=== PATIENT | female | born 1935 | race Caucasian/White ===

== ENCOUNTER → 2016-07-22 | Outpatient (CLI) | payer MEDICARE, BC ==
--- NOTE | 2016-07-22 16:36 | US ---
EXAMINATION TYPE: US carotid duplex BILAT DATE OF EXAM: 07/22/2016 2:00 PM COMPARISON: NONE CLINICAL HISTORY: 81-year-old female carotid bruit R09.89,. TECHNIQUE: Duplex carotid ultrasound. Indirect Doppler criteria was utilized. FINDINGS: Minimal atherosclerotic changes present at the bifurcations. EXAM MEASUREMENTS: RIGHT: Peak Systolic Velocity (PSV) cm/sec ----- Right CCA: 95.3 ----- Right ICA: 117.9 ----- Right ECA: 146.5 ICA/CCA ratio: 1.2 RIGHT: End Diastole cm/sec ----- Right CCA: 28.5 ----- Right ICA: 25.9 ----- Right ECA: 44.2 LEFT: Peak Systolic Velocity (PSV) cm/sec ----- Left CCA: 70.2 ----- Left ICA: 98.5 ----- Left ECA: 76.8 ICA/CCA ratio: 1.4 LEFT: End Diastole cm/sec ----- Left CCA: 13.1 ----- Left ICA: 24.8 ----- Left ECA: 6.7 VERTEBRALS (direction of flow): Right Vertebral: Antegrade Left Vertebral: Antegrade IMPRESSION: No hemodynamically significant stenosis appreciated in either internal carotid artery. Criteria for Assigning % of Stenosis / Diameter reduction (Estimation based on the indirect measurements of the internal carotid artery velocities (ICA PSV). 1. Normal (no stenosis)=ICA PSV < 125 cm/s: ratio < 2.0: ICA EDV<40 cm/s. 2. Less than 50% stenosis=ICA PSV < 125 cm/s: ratio < 2.0: ICA EDV<40 cm/s. 3. 50 to 69% stenosis=ICA PSV of 125 to 230 cm/s: ration 2.0 ? 4.0: ICA EDV 40-100 cm/s. 4. Greater than 70% stenosis to near occlusion= ICA PSV > 230 cm/s: ratio > 4.0: ICA EDV > 100 cm/s. 5. Near occlusion= ICA PSV velocities may be low or undetectable: variable ratio and ICA EDV. 6. Total occlusion=unable to detect flow.
--- NOTE | 2016-07-22 16:56 | BD ---
EXAMINATION TYPE: MG DEXA axial skeleton. DATE OF EXAM: 07/22/2016 1:25 PM COMPARISON: NONE CLINICAL HISTORY: 81-year-old female POST MENOPAUSAL Height: 5'1 Weight: 142 FRAX RISK QUESTIONS: Alcohol (3 or more units per day): no Family History (Parent hip fracture): no Glucocorticoids (More than 3mos): no (Ex: prednisone, prednisolone, methylprednisolone, dexamethasone, and hydrocortisone). History of Fracture in Adulthood: yes Secondary Osteoporosis: 1. Type 1 Diabetes: no 2. Hyperthyroidism: no 3. Menopause before 45: no 4. Malnutrition: no 5. Chronic liver disease: no Rheumatoid Arthritis: no Current Tobacco Use: no RISK FACTORS HISTORY OF: Other Fractures since Age 51: When: age 63 Postmenopausal woman: Poor Health: MEDICATIONS: Thyroid Medications: Which medication: Levothyroxine How Lon years Additional Medications: blood pressure, Xanax Additional History: EXAM MEASUREMENTS: Bone mineral densitometry was performed using the [employer] System. Bone mineral density as measured about the Lumbar spine is: ----- L1-L4(G/cm2): 1.129 T Score Values are as follows: ----- L2: -1.7 ----- L3: -0.5 ----- L4: 0.2 ----- L1-L4:-0.6 Bone mineral density about the R hip (g/cm2): 0.849 Bone mineral density about the L hip (g/cm2): 0.854 T Score values are as follows: -----R Neck: -1.4 -----L Neck: -1.3 -----R Intertrochanter: -1.5 -----L Intertrochanter: -1.7 IMPRESSION: Osteopenia as indicated by T score values in the lumbar spine and both hips. There is slightly increased risk of fracture and the patient may be considered for treatment. Re-Screen 2-5 years. NOTE: T-SCORE=SD OF THE YOUNG ADULT MEAN.
== END | disposition home or self-care (01) ==
LOC: RADUSWWP 13:06
PROVIDERS: ATTEND Family Medicine
DX: M85.88 Other specified disorders of bone density and structure, other site (principal); R09.89 Other specified symptoms and signs involving the circulatory and respiratory systems; Z78.0 Asymptomatic menopausal state
CPT/HCPCS: 77080; 93880

== ENCOUNTER → 2017-04-03 | Outpatient (CLI) | payer MEDICARE, BC ==
--- NOTE | 2017-04-04 22:53 | US ---
EXAMINATION TYPE: US thyroid st tissue head/neck DATE OF EXAM: 04/03/2017 COMPARISON: NONE CLINICAL HISTORY: E03.9 Hypothyroidism. Hypothyroid, pt had right thyroid removed many years ago, is currently on thyroid meds GLAND SIZE: Right Lobe: Surgically absent Left Lobe: 3.6 x 1.0 x 1.0 cm Overall Parenchyma: heterogeneous Isthmus Thickness: 0.4 cm Bilateral neck scanned, no evidence of lymphadenopathy. Right thyroid bed appeared wnl, left thyroid heterogeneous with no definite nodules seen. IMPRESSION: 1. Surgically absent right lobe thyroid. No suspicious anomaly is within the left lobe thyroid.
== END ==
LOC: RADUSWWP 16:23
PROVIDERS: ATTEND Family Medicine
DX: E03.9 Hypothyroidism, unspecified (principal)
CPT/HCPCS: 76536

== ENCOUNTER → 2017-12-17 | Outpatient (CLI) | payer MEDICARE, BC ==
[2017-12-17 07:10] LABS: Basophils # (A) 0.1 k/uL (0-0.2); Basophils % (A) 1 %; Eosinophils # (A) 0.4 k/uL (0-0.7); Eosinophils % (A) 4 %; HCT 37.9 % (34.0-46.0); Lymphocytes # (A) 2.6 k/uL (1.0-4.8); Lymphocytes % (A) 27 %; MCH 28.5 pg (25.0-35.0); MCHC 31.8 g/dL (31.0-37.0); MCV 89.5 fL (80.0-100.0); Monocytes # (A) 0.7 k/uL (0-1.0); Monocytes % (A) 7 %; Neutrophils # (A) 5.7 k/uL (1.3-7.7); Neutrophils % (A) 59 %; Platelet Count 314 k/uL (150-450); RBC 4.23 m/uL (3.80-5.40); RDW 12.3 % (11.5-15.5); WBC 9.6 k/uL (3.8-10.6)
[2017-12-17 07:46] LABS: Albumin 4.1 g/dL (3.5-5.0); Calcium 9.7 mg/dL (8.4-10.2); Magnesium 1.7 mg/dL (1.6-2.3); Phosphorus 3.6 mg/dL (2.5-4.5); Potassium 4.2 mmol/L (3.5-5.1); Total Bilirubin 0.4 mg/dL (0.2-1.3); Uric Acid 5.8 mg/dL (3.7-7.4)
[2017-12-17 07:57] LABS: T4, Free (Free Thyroxine) 1.34 ng/dL (0.78-2.19)
[2017-12-17 14:37] LABS: Hemoglobin A1C 5.7 % (4.0-6.0)
== END | disposition home or self-care (01) ==
LOC: LABWHC1 06:35
PROVIDERS: ATTEND Family Medicine
DX: N18.3 Chronic kidney disease, stage 3 (moderate) (principal); E78.5 Hyperlipidemia, unspecified; E03.9 Hypothyroidism, unspecified; R73.01 Impaired fasting glucose
CPT/HCPCS: 36415; 80053; 80061; 82043; 82306; 82570; 83036; 83735; 84100; 84439; 84443; 84550; 85025

== ENCOUNTER → 2018-04-20 | Outpatient (CLI) | payer MEDICARE, BC ==
[2018-04-20 16:24] LABS: Basophils # (A) 0.1 k/uL (0-0.2); Basophils % (A) 1 %; Eosinophils # (A) 0.4 k/uL (0-0.7); Eosinophils % (A) 5 %; HCT 40.3 % (34.0-46.0); HGB 13.3 gm/dL (11.4-16.0); Lymphocytes % (A) 36 %; MCH 30.2 pg (25.0-35.0); MCV 91.5 fL (80.0-100.0); Monocytes # (A) 0.5 k/uL (0-1.0); Monocytes % (A) 6 %; Neutrophils # (A) 4.1 k/uL (1.3-7.7); Neutrophils % (A) 49 %; Platelet Count 274 k/uL (150-450); RDW 12.6 % (11.5-15.5); WBC 8.4 k/uL (3.8-10.6)
[2018-04-21 05:18] LABS: Anion Gap 7.5 mmol/L (4.00-12.00); Calcium 9.9 mg/dL (8.7-10.3); Carbon Dioxide 27.5 mmol/L (21.6-31.8); Magnesium 1.8 mg/dL (1.5-2.4); Phosphorus 4.1 mg/dL (2.4-5.1); Potassium 4.3 mmol/L (3.5-5.5); Uric Acid 6.4 mg/dL (2.9-7.7)
== END ==
LOC: LABWHC1 15:54
PROVIDERS: ATTEND Family Medicine
DX: N18.3 Chronic kidney disease, stage 3 (moderate) (principal)
CPT/HCPCS: 36415; 80048; 82043; 82570; 83735; 83970; 84100; 84550; 85025

== ENCOUNTER → 2018-04-30 | Outpatient (CLI) | payer MEDICARE, BC ==
--- NOTE | 2018-04-30 18:05 | ECHOF ---
Referral Reason:I10 hypertension; I27.0 Primary pulmonary HTN MEASUREMENTS -------- HEIGHT: 154.9 cm WEIGHT: 63.5 kg BP: 183/77 RVIDd: 2.6 cm (< 3.3) IVSd: 1.0 cm (0.6 - 1.1) LVIDd: 4.6 cm (3.9 - 5.3) LVPWd: 1.0 cm (0.6 - 1.1) IVSs: 1.3 cm LVIDs: 3.2 cm LVPWs: 1.3 cm LA Diam: 3.4 cm (2.7 - 3.8) LAESV Index (A-L): 24.89 ml/m Ao Diam: 2.8 cm (2.0 - 3.7) AV Cusp: 2.0 cm (1.5 - 2.6) MV EXCURSION: 13.362 mm (> 18.000) MV EF SLOPE: 55 mm/s (70 - 150) EPSS: 0.3 cm MV E Miguel Ángel: 1.06 m/s MV DecT: 235 ms MV A Miguel Ángel: 1.18 m/s MV E/A Ratio: 0.90 AR PHT: 767 ms RAP: 5.00 mmHg RVSP: 40.56 mmHg FINDINGS -------- Sinus rhythm. This was a technically adequate study. The left ventricular size is normal. Left ventricular wall thickness is normal. Overall left vent ricular systolic function is normal with, an EF between 55 - 60 %. The right ventricle is normal in size. Normal LA size by volume 22+/-6 ml/m2. The right atrial size is normal. There is mild aortic valve sclerosis. There is mild aortic regurgitation. The mitral valve leaflets are mildly thickened. Mild mitral regurgitation is present. Mild tricuspid regurgitation present. There is mild pulmonary hypertension. The right ventricular systolic pressure, as measured by Doppler, is 40.56mmHg. Trace/mild (physiologic) pulmonic regurgitation. The aortic root size is normal. Normal inferior vena cava with normal inspiratory collapse consistent with estimated right atrial pre ssure of 5 mmHg. There is no pericardial effusion. CONCLUSIONS -------- 1. Sinus rhythm. 2. This was a technically adequate study. 3. The left ventricular size is normal. 4. Left ventricular wall thickness is normal. 5. Overall left ventricular systolic function is normal with, an EF between 55 - 60 %. 6. Normal LA size by volume 22+/-6 ml/m2. 7. The right atrial size is normal. 8. There is mild aortic valve sclerosis. 9. There is mild aortic regurgitation. 10. The mitral valve leaflets are mildly thickened. 11. Mild mitral regurgitation is present. 12. Mild tricuspid regurgitation present. 13. There is mild pulmonary hypertension. 14. Trace/mild (physiologic) pulmonic regurgitation. 15. The aortic root size is normal. 16. Normal inferior vena cava with normal inspiratory collapse consistent with estimated right atrial pressure of 5 mmHg. 17. There is no pericardial effusion. PERIPHERAL VASCULAR TECH: Vane Grider RDCS
== END ==
LOC: RADECHMAIN 15:42
PROVIDERS: ATTEND Family Medicine
DX: I08.3 Combined rheumatic disorders of mitral, aortic and tricuspid valves (principal)
CPT/HCPCS: 93306

== ENCOUNTER → 2019-04-16 | Outpatient (CLI) | payer MEDICARE, BC ==
--- NOTE | 2019-04-16 18:26 | BD ---
EXAMINATION TYPE: Axial Bone Density DATE OF EXAM: 04/16/2019 COMPARISON: 07.22.2016 CLINICAL HISTORY: 84 YR OLD FEMALE ...ICD-10 CODE: M85.80 DISORDER OF BONE Height: 61.2 Weight: 144 FRAX RISK QUESTIONS: NOTHING ADDITIONAL TO NOTE RISK FACTORS HISTORY OF: Family History of Osteoporosis: YES, HER SISTER Postmenopausal woman: YES IN HER 50s Take estrogen and/or progesterone medications: YES FOR ABOUT 2-3 YRS IN THE PAST NONE NOW Lost more than 2 inches in height since high school: YES Poor Health: ELDERLY Hyperparathyroidism: YES, THYROID REMOVED Adrenal Insufficiency: NO MEDICATIONS: Thyroid Medications: YES, SYNTHROID FOR ABOUT 10 YRS Additional Medications: BP MEDS, REFLUX MEDS, VIT D Additional History: HYPERTENSION EXAM MEASUREMENTS: Bone mineral densitometry was performed using the [employer] System. Bone mineral density as measured about the Lumbar spine is: ----- L1-L4(G/cm2): 1.192 T Score Values are as follows: ----- L1: -1.1 ----- L2: -1.1 ----- L3: 0.5 ----- L4: 1.6 ----- L1-L4: 0.1 Bone mineral density has: Increased 10.0% since study of: 07.22.2016 Bone mineral density about the R hip (g/cm2): 0.867 Bone mineral density about the L hip (g/cm2): 0.888 T Score values are as follows: -----R Neck: -1.0 -----L Neck: -0.9 -----R Total: -1.1 -----L Total: -0.9 Bone mineral density has: Increased 1.0% since study of: 07.22.2016 FRAX%s: THERE IS A 11.6% CHANCE FOR A MAJOR OSTEOPOROTIC FX AND A 2.6% FOR HIP.....PROBABILITY FOR FX IN 10 YRS TIME IMPRESSION: Osteopenia (T Score between -2.5 and -1). There is slightly increased risk of fracture and the patient may be considered for treatment. Re-Screen 2-5 years. NOTE: T-SCORE=SD OF THE YOUNG ADULT MEAN.
== END | disposition home or self-care (01) ==
LOC: RADBDWWP 06:59
PROVIDERS: ATTEND Family Medicine
DX: M85.80 Other specified disorders of bone density and structure, unspecified site (principal); M19.90 Unspecified osteoarthritis, unspecified site
CPT/HCPCS: 77080

== ENCOUNTER → 2019-10-08 | Outpatient (CLI) | payer MEDICARE, BC ==
--- NOTE | 2019-10-12 08:24 | MM ---
Reason for exam: screening (asymptomatic). Last mammogram was performed 2 years and 3 months ago. Physical Findings: A clinical breast exam by your physician is recommended on an annual basis and results should be correlated with mammographic findings. MG 3D Screening Mammo W/Cad Bilateral CC and MLO view(s) were taken. Prior study comparison: July 22, 2017, mammogram, performed at [facility]. April 25, 2016, mammogram, performed at [facility]. There are scattered fibroglandular densities. Stable benign calcifications. There is no discrete abnormality. No significant changes when compared with prior studies. ASSESSMENT: Benign, BI-RAD 2 RECOMMENDATION: Routine screening mammogram of both breasts in 1 year.
== END | disposition home or self-care (01) ==
LOC: RADMAMWWP 10:26
PROVIDERS: ATTEND Family Medicine
DX: Z12.31 Encounter for screening mammogram for malignant neoplasm of breast (principal)
CPT/HCPCS: 77063; 77067

== ENCOUNTER 2020-07-14 13:51 | Emergency (ER) | payer MEDICARE, BC ==
[2020-07-14 14:45] VITALS: BP 184/73; PULSE 69; RESP 18; TEMP 97.9
--- NOTE | 2020-07-14 16:06 | CT ---
EXAMINATION TYPE: CT facial bones wo con DATE OF EXAM: 07/14/2020 COMPARISON: 03/31/2010 CT orbits HISTORY: fall, facial trauma CT DLP: Included in Brain/C-spine of 973.3 mGycm CONTRAST: 0 mL of Isovue 300 The paranasal sinuses are examined in the axial plane at 2 mm thick sections. Reconstructed images i n the coronal plane were obtained. There is dental amalgam scatter artifact. No acute fractures are evident. Nasal bones are intact. Max illa and mandible are intact. Temporomandibular junctions are intact. There is narrowing and flatteni ng of the condylar heads compatible with advancing osteoarthritic degenerative changes of the temporo mandibular junctions.. Maxillary spine is normal. Zygomatic arches are intact. Greater wings of sphen oid are normal. The maxillary sinuses are clear. The ethmoid air cells are clear. The sphenoid sinuses are clear. The frontal sinuses are clear. The septum is evaluated. There is septal deviation to the right. The ostiomeatal units are patent. IMPRESSIONS: 1. No acute fractures evident. 2. 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
--- NOTE | 2020-07-14 16:11 | CT ---
EXAMINATION TYPE: CT brain mady wo con DATE OF EXAM: 07/14/2020 COMPARISON: 03/31/2010 HISTORY: A 5-year-old female Fall, facial trauma CT DLP: 973.3 mGycm Automated exposure control for dose reduction was used. Technique: Examination of the head was done in axial plane without intravenous contrast. Coronal and sagittal reconstructions performed. CT of the cervical spine was obtained in axial plane without intravenous injection of contrast mater ial. Coronal and sagittal reformatted images were obtained from the axial views for evaluation of f ractures, spinal alignment and canal. FINDINGS: Head: There is no evidence of acute intracranial hemorrhage, acute ischemic changes, mass, mass-effect, or extra-axial fluid collection. There is no effacement of cerebral sulci or basal subarachnoid cister ns. There is no hydrocephalus. There is no midline shift. Tubbs-white matter distinction is preserv ed. Mild generalized supratentorial volume loss. Partially empty sella. Mild patchy periventricular white matter hypodensities. Tiny old lacunar infarct left basal ganglia. No calvarial fracture. Mastoid air cells are well pneumatized. The facial bones reported separately. Cervical spine: No craniocervical junction abnormality, predental space widening, or prevertebral soft tissue swellin g. Mild degenerative change at the C1 dens articulation. Mild degenerative disc disease with some posterior disc bulging in the cervical spine. There is a lef t paracentral disc protrusion at C5-C6 that does not seem to cause any significant spinal canal steno sis. Scattered mild facet arthropathy. No acute fracture of the cervical spine. Alignment is maintained. No significant neuroforaminal stenosis seen. Right lobe of the thyroid gland appears absent, possibly surgically absent. Mild emphysematous change in the visualized upper lungs. Sagittal and coronal reformatted images confirm above findings. COMBINED IMPRESSION: 1. Mild atrophy and mild burden of chronic small vessel ischemic disease. No acute intracranial abnor mality seen. 2. No acute fracture or malalignment of the cervical spine. Mild spondylotic change. A left paracentr al disc herniation at C5-C6 does not appear to cause any significant spinal canal stenosis. 3. Facial bones reported separately.
[2020-07-14] MEDS ORDERED: DIPH,PERTUS(ACELL)TETVAC-LF 0.5 ML VIAL IM ONE (19:35)
--- NOTE | 2020-07-14 19:43 | ED ---
Fall HPI - General Chief Complaint: Fall Stated Complaint: Fall Time Seen by Provider: 07/14/20 19:00 Source: patient, family Mode of arrival: ambulatory - History of Present Illness Initial Comments: This is a 85-year-old female who fell earlier today after tripping she hit her face on the ground she denied any loss of consciousness any revision she has pain to her face and it hadn't nasal bleeding. No overt neck pain. No loss of function to her upper or lower extremities. She has sustained abrasions to her right orbit and left side of herface. Some minor abrasion to her both hands no other complaints to problems such as loss of function to her upper or lower extremities. She's not sure her last tetanus shot was. The nasal bleeding has since stopped up. MD Complaint: fall - Related Data Home Medications Medication Instructions Recorded Confirmed Aspirin EC [Ecotrin] 81 mg PO DAILY 09/29/15 09/30/15 Calcium Carbonate [Calcium] 600 mg PO DAILY 09/29/15 09/30/15 Glucosamine/Chondr Bermudez A Sod [Osteo 1 tab PO DAILY 09/29/15 09/30/15 Bi-Flex Caplet] Levothyroxine Sodium [Synthroid] 100 mcg PO DAILY 09/29/15 09/30/15 Metoprolol Tartrate [Lopressor] 50 mg PO DAILY 09/29/15 09/30/15 hydroCHLOROthiazide 25 mg PO DAILY 09/29/15 09/30/15 lisinopriL [Zestril] 20 mg PO DAILY 09/29/15 09/30/15 ALPRAZolam 0.5 mg PO HS 09/30/15 09/30/15 Previous Rx's Medication Instructions Recorded Sulfacetamide 10% Ophth Soln 2 drops RIGHT EYE Q8H 10 Days #5 ml 07/14/20 [Bleph-10] Allergies Allergy/AdvReac Type Severity Reaction Status Date / Time No Known Allergies Allergy Verified 07/14/20 14:40 Review of Systems ROS Statement: Those systems with pertinent positive or pertinent negative responses have been documented in the HPI. ROS Other: All systems not noted in ROS Statement are negative. Past Medical History Past Medical History: Hypertension, Thyroid Disorder Additional Past Medical History / Comment(s): DIVERTICULITIS, FIBROMYLAGIA History of Any Multi-Drug Resistant Organisms: None Reported Past Surgical History: Section Additional Past Surgical History / Comment(s): Thyroid surgery, SCOPES BILATERAL KNEES, COCCYX BONE REMOVED Past Anesthesia/Blood Transfusion Reactions: No Reported Reaction Past Psychological History: No Psychological Hx Reported Smoking Status: Never smoker Past Alcohol Use History: None Reported Past Drug Use History: None Reported - Past Family History Sister(s) Family Medical History: Diabetes Mellitus Additional Family Medical History / Comment(s): CABG Mother Family Medical History: Cancer Additional Family Medical History / Comment(s): COLON CA General Exam - General Exam Comments Initial Comments: This is a well-developed well-nourished awake alert oriented 4 female Mary Coma Scale 15 Limitations: no limitations General appearance: alert, in no apparent distress Head exam: Present: other (Abrasions to the right orbit and left nasal region some ecchymosis to the inferior right orbit.) Eye exam: Present: PERRL, EOMI, other (The lower lid on the right side demonstrate evidence of beginnings of a stye). Absent: conjunctival injection Neck exam: Present: normal inspection. Absent: tenderness, meningismus, lymphadenopathy Respiratory exam: Present: normal lung sounds bilaterally. Absent: respiratory distress, wheezes, rales, rhonchi, stridor Cardiovascular Exam: Present: regular rate Extremities exam: Present: full ROM, normal capillary refill, other (Agency over the left dorsal thumb MCP and also over the fifth finger on the right hand dorsal aspect no acute bleeding no repair indicated no step-off or crepitation). Absent: tenderness Back exam: Present: full ROM Neurological exam: Present: alert, oriented X3, CN II-XII intact Psychiatric exam: Present: normal affect, normal mood Skin exam: Present: warm, dry, normal color. Absent: rash Course Vital Signs 07/14/20 14:40 Temperature 97.9 F Pulse Rate 69 Respiratory 18 Rate Blood Pressure 184/73 O2 Sat by Pulse 99 Oximetry Medical Decision Making - Medical Decision Making I did discuss findings with patient and her daughter was present patient be discharged she will be placed on eye drops for her anxiety also local wound care - Radiology Data Radiology results: report reviewed (Imaging reviewed as well as reports no evidence of any fracture subluxations CT brain and C-spine show no acute findings evidence of degenerative joint disease please see complete report), i mage reviewed Disposition Clinical Impression: Fall, Facial abrasion, Stye, Epistaxis due to trauma Disposition: HOME SELF-CARE Condition: Good Instructions (If sedation given, give patient instructions): Fall Prevention for Older Adults (ED), Abrasion (ED), Nasal Contusion (ED), Contusion in Adults (ED), Nosebleed (ED) Prescriptions: Sulfacetamide 10% Ophth Soln [Bleph-10] 2 drops RIGHT EYE Q8H 10 Days #5 ml Is patient prescribed a controlled substance at d/c from ED?: No Referrals: Luis Colón [Primary Care Provider] - 1-2 days
== END 2020-07-14 19:54 | disposition home or self-care (01) ==
LOC: EC 13:51
DX: S00.81XA Abrasion of other part of head, initial encounter (principal); I10 Essential (primary) hypertension; Z79.82 Long term (current) use of aspirin; W19.XXXA Unspecified fall, initial encounter; Z23 Encounter for immunization
CPT/HCPCS: 70450; 70486; 72125; 90471; 90715; 99284

== ENCOUNTER → 2021-07-27 | Outpatient (CLI) | payer MEDICARE, BC ==
--- NOTE | 2021-07-27 15:26 | US ---
EXAMINATION TYPE: US carotid duplex BILAT DATE OF EXAM: 07/27/2021 COMPARISON: US 2017 CLINICAL HISTORY: R42. Prior smoker. Hx hypertension, hyperlipidemia. Lightheadedness per order. EXAM MEASUREMENTS: RIGHT: Peak Systolic Velocity (PSV) cm/sec ----- Right CCA: 99.4 ----- Right ICA: 135 ----- Right ECA: 141 ICA/CCA ratio: 1.36 RIGHT: End Diastole cm/sec ----- Right CCA: 26.1 ----- Right ICA: 28.7 ----- Right ECA: 39.2 LEFT: Peak Systolic Velocity (PSV) cm/sec ----- Left CCA: 81.2 ----- Left ICA: 114 ----- Left ECA: 96.3 ICA/CCA ratio: 1.40 LEFT: End Diastole cm/sec ----- Left CCA: 12.6 ----- Left ICA: 22.4 ----- Left ECA: 8.1 VERTEBRALS (direction of flow): Right Vertebral: Antegrade Left Vertebral: Antegrade Rhythm: Normal Intimal thickening seen bilaterally. Mild Plaque seen within bilateral bulbs. Elevated velocity noted within the distal right ICA and right ECA. IMPRESSION: No hemodynamically significant stenosis in either internal carotid artery . Criteria for Assigning % of Stenosis / Diameter reduction (Estimation based on the indirect measurements of the internal carotid artery velocities (ICA PSV). 1. Normal (no stenosis)=ICA PSV < 125 cm/s: ratio < 2.0: ICA EDV<40 cm/s. 2. Less than 50% stenosis=ICA PSV < 125 cm/s: ratio < 2.0: ICA EDV<40 cm/s. 3. 50 to 69% stenosis=ICA PSV of 125 to 230 cm/s: ration 2.0 ? 4.0: ICA EDV 40-100 cm/s. 4. Greater than 70% stenosis to near occlusion= ICA PSV > 230 cm/s: ratio > 4.0: ICA EDV > 100 cm/s. 5. Near occlusion= ICA PSV velocities may be low or undetectable: variable ratio and ICA EDV. 6. Total occlusion=unable to detect flow.
== END | disposition home or self-care (01) ==
LOC: RADUSWWP 14:30
PROVIDERS: ATTEND Family Medicine
DX: R42 Dizziness and giddiness (principal); Z87.891 Personal history of nicotine dependence
CPT/HCPCS: 93880

== ENCOUNTER → 2021-09-24 | Outpatient (CLI) | payer MEDICARE, BC ==
--- NOTE | 2021-09-24 12:38 | US ---
EXAMINATION TYPE: US venous doppler duplex LE LT DATE OF EXAM: 09/24/2021 12:17 PM COMPARISON: NONE CLINICAL HISTORY: I82.40 M79.89. Pain and swelling SIDE PERFORMED: Left TECHNIQUE: The lower extremity deep venous system is examined utilizing real time linear array sonog yan with graded compression, doppler sonography and color-flow sonography. VESSELS IMAGED: Common Femoral Vein Deep Femoral Vein Greater Saphenous Vein * Femoral Vein Popliteal Vein Small Saphenous Vein * Proximal Calf Veins (* superficial vessels) Left Leg: Positive for DVT There is thrombus seen with partial compression in the prox and mid FV. The distal FV and pop vein sh ow no flow and distended vessel. IMPRESSION: Findings compatible with DVT.
== END | disposition home or self-care (01) ==
LOC: RADUSWWP 11:54
PROVIDERS: ATTEND Family Medicine
DX: I82.401 Acute embolism and thrombosis of unspecified deep veins of right lower extremity (principal); M79.89 Other specified soft tissue disorders

== ENCOUNTER → 2024-02-11 | Outpatient (CLI) | payer MEDICARE, BC ==
--- NOTE | 2024-02-11 14:19 | BD ---
EXAMINATION TYPE: Axial Bone Density DATE OF EXAM: 02/11/2024 CLINICAL HISTORY: 88 years old Female. ICD-10 CODE: M85.80 OT DISRD OF BONE DENSITY AND STRUCTURE, UN , Z78.0 Height: 60.2 Weight: 136 FRAX RISK QUESTIONS: Family History (Parent hip fracture): yes History of Fracture in Adulthood: yes, humerus Secondary Osteoporosis: yes 1. Type 1 Diabetes: 2. Hyperthyroidism: yes, thyroid removal 3. Menopause before 45: no, 50s RISK FACTORS HISTORY OF: height loss, thyroid removal, hypertension, hx of broken humerus, removal of coccyx bone long ago Spine Fracture: coccyx bone removal, long ago MEDICATIONS: synthroid, bp meds, reflux meds, vit d, Thyroid Medications: yes synthroid, for15 yes now. EXAM MEASUREMENTS: Bone mineral densitometry was performed using the [employer] System. Bone mineral density as measured about the Lumbar spine is: ----- L1-L4(G/cm2): 1.129 T Score Values are as follows: ----- L1: -1.7 ----- L2: -1.0 ----- L3: -0.1 ----- L4: 0.5 ----- L1-L4: -0.4 Z Score Values are as follows: ----- L1: 0.4 ----- L2: 1.1 ----- L3: 1.9 ----- L4: 2.6 ----- L1-L4: 1.6 Bone mineral density has: Decreased -5.3% since study of: 04.16.2019 Bone mineral density about the R hip (g/cm2): 0.824 Bone mineral density about the L hip (g/cm2): 0.915 T Score values are as follows: -----R Neck: -1.3 -----L Neck: -0.7 -----R Total: -1.5 -----L Total: -0.7 Z Score values are as follows: -----R Neck: 1.3 -----L Neck: 1.9 -----R Total: 1.0 -----L Total: 1.8 Bone mineral density has: Decreased -1.0% since study of: 04.16.2019 FRAX%s: The graph provided illustrates a 20.9% chance for a major osteoporotic fx and a 12.8% chance for the hips probability for fx in 10 years time. IMPRESSION: Osteopenia (T Score between -2.5 and -1). There is slightly increased risk of fracture and the patient may be considered for treatment. Re-Screen 2-5 years. NOTE: T-SCORE=SD OF THE YOUNG ADULT MEAN. [facility], , 02/11/2024 2:17 PM
== END | disposition home or self-care (01) ==
LOC: RADBDWWP 07:36
PROVIDERS: ATTEND Family Medicine
CPT/HCPCS: 77080

== ENCOUNTER 2024-06-09 06:27 | Emergency (ER) | payer MEDICARE, BC ==
[2024-06-09 06:33] VITALS: RESP 18
[2024-06-09] MEDS: ACETAMINOPHEN TAB 325 MG TAB PO STA (07:00)
[2024-06-09] MEDS: traMADol 50 MG TAB PO STA (07:01)
--- NOTE | 2024-06-09 07:03 | ED ---
Back Pain HPI - General Chief Complaint: Back Pain/Injury Stated Complaint: Fall Time Seen by Provider: 06/09/24 06:34 Source: patient, family, RN notes reviewed Mode of arrival: ambulatory Limitations: no limitations - History of Present Illness Initial Comments: 89-year-old female presents emergency department with chief complaint of a fall. Patient states that she fell last night getting in some groceries. Patient states that she just lost her balance she fell backwards with her arm up. She complains of right shoulder pain low back pain. Patient denies any bowel, bladder incontinence retention no lower extremity weakness paresthesias. Patient has no complaints abdominal pain no head injury no loss conscious. She tried some Tylenol last night. - Related Data Home Medications Medication Instructions Recorded Confirmed Aspirin EC [Ecotrin] 81 mg PO DAILY 09/29/15 09/30/15 Calcium Carbonate [Calcium] 600 mg PO DAILY 09/29/15 09/30/15 Glucosamine/Chondr Bermudez A Sod [Osteo 1 tab PO DAILY 09/29/15 09/30/15 Bi-Flex Caplet] Levothyroxine Sodium [Synthroid] 100 mcg PO DAILY 09/29/15 09/30/15 Metoprolol Tartrate [Lopressor] 50 mg PO DAILY 09/29/15 09/30/15 hydroCHLOROthiazide 25 mg PO DAILY 09/29/15 09/30/15 lisinopriL [Zestril] 20 mg PO DAILY 09/29/15 09/30/15 ALPRAZolam 0.5 mg PO HS 09/30/15 09/30/15 Previous Rx's Medication Instructions Recorded Sulfacetamide 10% Ophth Soln 2 drops RIGHT EYE Q8H 10 Days #5 ml 07/14/20 [Bleph-10] Acetaminophen-Codeine 300-30mg 1 tab PO Q6HR PRN #18 tablet 06/09/24 [Tylenol #3] Allergies Allergy/AdvReac Type Severity Reaction Status Date / Time No Known Allergies Allergy Verified 06/09/24 06:34 Review of Systems ROS Statement: Those systems with pertinent positive or pertinent negative responses have been documented in the HPI. ROS Other: All systems not noted in ROS Statement are negative. Past Medical History Past Medical History: Hypertension, Thyroid Disorder Additional Past Medical History / Comment(s): DIVERTICULITIS, FIBROMYLAGIA History of Any Multi-Drug Resistant Organisms: None Reported Past Surgical History: Section Additional Past Surgical History / Comment(s): Thyroid surgery, SCOPES BILATERAL KNEES, COCCYX BONE REMOVED Past Anesthesia/Blood Transfusion Reactions: No Reported Reaction Past Psychological History: No Psychological Hx Reported Smoking Status: Never smoker Past Alcohol Use History: None Reported Past Drug Use History: None Reported - Past Family History Sister(s) Family Medical History: Diabetes Mellitus Additional Family Medical History / Comment(s): CABG Mother Family Medical History: Cancer Additional Family Medical History / Comment(s): COLON CA General Exam Limitations: no limitations General appearance: alert, in no apparent distress Head exam: Present: atraumatic, normocephalic, normal inspection Eye exam: Present: normal appearance, PERRL, EOMI. Absent: scleral icterus, conjunctival injection, periorbital swelling Neck exam: Present: normal inspection, full ROM. Absent: tenderness, meningismus, lymphadenopathy Respiratory exam: Present: normal lung sounds bilaterally. Absent: respiratory distress, wheezes, rales, rhonchi, stridor Cardiovascular Exam: Present: regular rate, normal rhythm, normal heart sounds. Absent: systolic murmur, diastolic murmur, rubs, gallop, clicks GI/Abdominal exam: Present: soft, normal bowel sounds. Absent: distended, tenderness, guarding, rebound, rigid Extremities exam: Present: other (Mild tenderness no obvious deformity full range of motion neurovascular intact lower extremities unremarkable) Back exam: Present: full ROM, tenderness, paraspinal tenderness, vertebral tenderness Neurological exam: Present: alert, oriented X3, reflexes normal. Absent: motor sensory deficit Course Vital Signs 06/09/24 06:30 Temperature 97.9 F Pulse Rate 93 Respiratory 18 Rate Blood Pressure 178/76 O2 Sat by Pulse 99 Oximetry Medical Decision Making - Medical Decision Making Was pt. sent in by a medical professional or institution (, PA, APPLIANCE ASSEMBLER, urgent care, hospital, or prison...) When possible be specific @ -No Did you speak to anyone other than the patient for history (EMS, parent, family, police, friend...)? What history was obtained from this source @ -No Did you review nursing and triage notes (agree or disagree)? Why? @ -I reviewed and agree with nursing and triage notes Were old charts reviewed (outside hosp., previous admission, EMS record, old EKG, old radiological studies, urgent care reports/EKG's, prison records)? Report findings @ -No old charts were reviewed Differential Diagnosis (chest pain, altered mental status, abdominal pain women, abdominal pain men, vaginal bleeding, weakness, fever, dyspnea, syncope, headache, dizziness, GI bleed, back pain, seizure, CVA, palpatations, mental health, musculoskeletal)? @ -Differential Back Pain: Strain, zoster, cauda equina syndrome, epidural abscess, vertebral osteomyelitis, discitis, fracture, subluxation, disc herniation, DJD, spinal stenosis, dissection, AAA, pancreatitis, peptic ulcer disease, pyelonephritis, kidney stone, this is not meant to be an all-inclusive list. EKG interpreted by me (3pts min.). @ -None X-rays interpreted by me (1pt min.). @ -Pelvis x-ray no acute fracture X-ray lumbar spine 3 view no acute fracture degenerative changes, spondylolisthesis X-ray right shoulder no acute fracture or malalignment, no dislocation CT interpreted by me (1pt min.). @ -None done U/S interpreted by me (1pt. min.). @ -None done What testing was considered but not performed or refused? (CT, X-rays, U/S, labs)? Why? @ -None What meds were considered but not given or refused? Why? @ -None Did you discuss the management of the patient with other professionals (professionals i.e. , PA, APPLIANCE ASSEMBLER, lab, RT, psych nurse, social work lecturer, bods developer, teacher, licensed mortgage loan officer, medical case manager)? Give summary @ -No Was smoking cessation discussed for >3mins.? @ -No Was critical care preformed (if so, how long)? @ -No Were there social determinants of health that impacted care today? How? (Homelessness, low income, unemployed, alcoholism, drug addiction, transportation, low edu. Level, literacy, decrease access to med. care, penitentiary, rehab)? @ -No Was there de-escalation of care discussed even if they declined (Discuss DNR or withdrawal of care, Hospice)? DNR status @ -No What co-morbidities impacted this encounter? (DM, HTN, Smoking, COPD, CAD, Cancer, CVA, ARF, Chemo, Hep., AIDS, mental health diagnosis, sleep apnea, morbid obesity)? @ -None Was patient admitted / discharged? Hospital course, mention meds given and route, prescriptions, significant lab abnormalities, going to OR and other pertinent info. @ -Discharge patient presented after a fall. X-rays are negative for acute pr ocess patient discharged with analgesics. Undiagnosed new problem with uncertain prognosis? @ -No Drug Therapy requiring intensive monitoring for toxicity (Heparin, Nitro, Insulin, Cardizem)? @ -No Were any procedures done? @ -No Diagnosis/symptom? @ -Fall, shoulder strain, low back pain Acute, or Chronic, or Acute on Chronic? @ -[Acute Uncomplicated (without systemic symptoms) or Complicated (systemic symptoms)? @ -Uncomplicated Side effects of treatment? @ -No Exacerbation, Progression, or Severe Exacerbation? @ -No Poses a threat to life or bodily function? How? (Chest pain, [place], [place], pneumonia, PE, COPD, DKA, ARF, appy, cholecystitis, CVA, Diverticulitis, Homicidal, Suicidal, threat to staff... and all critical care pts) @ -No Disposition Clinical Impression: Fall, Back pain, Shoulder strain Disposition: HOME SELF-CARE Condition: Stable Instructions (If sedation given, give patient instructions): Acute Low Back Pain (ED) Additional Instructions: Please return to the Emergency Department if symptoms worsen or any other concerns. Prescriptions: Acetaminophen-Codeine 300-30mg [Tylenol #3] 1 tab PO Q6HR PRN #18 tablet PRN Reason: pain Is patient prescribed a controlled substance at d/c from ED?: Yes When asked, does pt state using other controlled substances?: No If prescribed controlled substance>3 days was MAPS reviewed?: Yes If opioid is for acute pain is fill amount 7 days or less?: Yes If Rx opioid, was Start Talking consent form obtained?: Yes Referrals: Sb Benedict MD [Primary Care Provider] - 1-2 days Time of Disposition: 08:35
[2024-06-09] MEDS: KETOROLAC 15 MG/ML 1 ML VIAL IM STA (07:57)
--- NOTE | 2024-06-09 08:17 | XR ---
EXAMINATION TYPE: XR shoulder complete RT DATE OF EXAM: 06/09/2024 7:30 AM COMPARISON: None. CLINICAL INDICATION: Female, 89 years old with history of fall, pain, pain TECHNIQUE: Three views of the right shoulder are obtained. FINDINGS: Osseous structures are demineralized. There is no acute fracture/dislocation evident in th e right shoulder. Moderate to severe narrowing at the acromioclavicular joint. Glenohumeral joint is preserved. The visualized ribs are intact and unremarkable. IMPRESSION: There is no acute fracture or dislocation in the right shoulder. [facility], , 06/09/2024 8:15 AM
--- NOTE | 2024-06-09 08:19 | XR ---
EXAMINATION TYPE: XR pelvis AP view DATE OF EXAM: 06/09/2024 7:30 AM COMPARISON: None. CLINICAL INDICATION: Female, 89 years old with history of fall, pain, TECHNIQUE: A single AP view of the pelvis is obtained. FINDINGS: There is no acute fracture/dislocation evident in the pelvis. The sacroiliac joints appea r symmetric and unremarkable. Mild narrowing of both hip joints with moderate acetabular spurring. P ubic symphysis is intact. The overlying soft tissue appears unremarkable. IMPRESSION: There is no acute fracture or dislocation in the pelvis. [facility], , 06/09/2024 8:17 AM
--- NOTE | 2024-06-09 08:21 | XR ---
EXAMINATION TYPE: XR lumbar spine 2 or 3V DATE OF EXAM: 06/09/2024 7:30 AM COMPARISON: None. CLINICAL INDICATION: Female, 89 years old with history of fall, pain, pain TECHNIQUE: Frontal and lateral images of the lumbar spine are obtained. FINDINGS: There are 5 lumbar type vertebral bodies identified. The lumbar spine shows levoconvex sc oliosis centered at L4 level without evidence of acute fracture or dislocation. There is grade 1 ante rolisthesis L4 on L5. Vertebral body heights are within normal limits. There is mild disc space narro wing at L4-L5 level. Possible bilateral renal calculi, correlate clinically. IMPRESSION: No acute fracture or dislocation is seen in the lumbar spine. [facility], , 06/09/2024 8:18 AM
[2024-06-09] MEDS: ACET/COD 300 MG/30 MG STARTER PACK 6 TAB BTL PO STA (08:38)
[2024-06-09 08:46] VITALS: BP 154/87; PULSE 86; TEMP 98
== END 2024-06-09 08:45 | disposition home or self-care (01) ==
LOC: EC 06:27
DX: S46.911A Strain of unspecified muscle, fascia and tendon at shoulder and upper arm level, right arm, initial encounter (principal); M54.50 Low back pain, unspecified; W19.XXXA Unspecified fall, initial encounter
CPT/HCPCS: 72100; 72170; 73030; 99284; 96372; J1885

== ENCOUNTER 2024-06-13 17:04 | Emergency (ER) | payer MEDICARE, BC ==
[2024-06-13 17:08] VITALS: TEMP 98
[2024-06-13] MEDS: MORPHINE SULFATE 2 MG/ML SYRINGE IM STA (17:28)
--- NOTE | 2024-06-13 17:57 | ED ---
Back Pain HPI - General Chief Complaint: Back Pain/Injury Stated Complaint: fell lower back pain Time Seen by Provider: 06/13/24 17:11 Source: patient Limitations: no limitations - History of Present Illness Initial Comments: 89-year-old female presenting with chief complaint of lower back pain. Patient was seen here on 06/09 after a mechanical fall. She had negative x-rays of the lumbar spine. She has been taking Tylenol 3 at home and still reports a great deal of lower back pain that is making it difficult to move around and walk. She does not get radiation of pain into the legs. She does have at baseline some loss of bladder control, no increase in this. No loss of bowel control. No saddle paresthesia. States that she does have some pressure with urinating. No vomiting. No fever. No abdominal pain - Related Data Home Medications Medication Instructions Recorded Confirmed Aspirin EC [Ecotrin] 81 mg PO DAILY 09/29/15 09/30/15 Calcium Carbonate [Calcium] 600 mg PO DAILY 09/29/15 09/30/15 Glucosamine/Chondr Bermudez A Sod [Osteo 1 tab PO DAILY 09/29/15 09/30/15 Bi-Flex Caplet] Levothyroxine Sodium [Synthroid] 100 mcg PO DAILY 09/29/15 09/30/15 Metoprolol Tartrate [Lopressor] 50 mg PO DAILY 09/29/15 09/30/15 hydroCHLOROthiazide 25 mg PO DAILY 09/29/15 09/30/15 lisinopriL [Zestril] 20 mg PO DAILY 09/29/15 09/30/15 ALPRAZolam 0.5 mg PO HS 09/30/15 09/30/15 Previous Rx's Medication Instructions Recorded Sulfacetamide 10% Ophth Soln 2 drops RIGHT EYE Q8H 10 Days #5 ml 07/14/20 [Bleph-10] Acetaminophen-Codeine 300-30mg 1 tab PO Q6HR PRN #18 tablet 06/09/24 [Tylenol #3] Lidocaine 5% Patch [Lidoderm 5% 1 patch TOPICAL DAILY PRN #30 patch 06/13/24 Patch] methylPREDNISolone Dose Pack 4 mg PO DIRECTED #1 packet 06/13/24 [Medrol Dose Pack] Allergies Allergy/AdvReac Type Severity Reaction Status Date / Time No Known Allergies Allergy Verified 06/13/24 17:08 Review of Systems ROS Statement: Those systems with pertinent positive or pertinent negative responses have been documented in the HPI. ROS Other: All systems not noted in ROS Statement are negative. Past Medical History Past Medical History: Hypertension, Thyroid Disorder Additional Past Medical History / Comment(s): DIVERTICULITIS, FIBROMYLAGIA History of Any Multi-Drug Resistant Organisms: None Reported Past Surgical History: Section Additional Past Surgical History / Comment(s): Thyroid surgery, SCOPES BILATERAL KNEES, COCCYX BONE REMOVED Past Anesthesia/Blood Transfusion Reactions: No Reported Reaction Past Psychological History: No Psychological Hx Reported Smoking Status: Never smoker Past Alcohol Use History: None Reported Past Drug Use History: None Reported - Past Family History Sister(s) Family Medical History: Diabetes Mellitus Additional Family Medical History / Comment(s): CABG Mother Family Medical History: Cancer Additional Family Medical History / Comment(s): COLON CA General Exam Limitations: no limitations General appearance: alert, in no apparent distress Head exam: Present: atraumatic, normocephalic, normal inspection Eye exam: Present: normal appearance, EOMI Neck exam: Present: normal inspection. Absent: meningismus Respiratory exam: Absent: respiratory distress Cardiovascular Exam: Present: regular rate Back exam: Present: normal inspection, tenderness, muscle spasm. Absent: vertebral tenderness Neurological exam: Present: alert, oriented X3 Psychiatric exam: Present: normal affect, normal mood Skin exam: Present: warm, dry, normal color Course Vital Signs 06/13/24 06/13/24 06/13/24 17:05 18:20 20:51 Temperature 98 F Pulse Rate 79 68 65 Respiratory 20 20 16 Rate Blood Pressure 168/72 200/67 O2 Sat by Pulse 98 97 96 Oximetry Medical Decision Making - Medical Decision Making Was pt. sent in by a medical professional or institution (, PA, CAMPAIGN MANAGER, urgent care, hospital, or jail...) When possible be specific @ -No Did you speak to anyone other than the patient for history (EMS, parent, family, police, friend...)? What history was obtained from this source @ -No Did you review nursing and triage notes (agree or disagree)? Why? @ -I reviewed and agree with nursing and triage notes Were old charts reviewed (outside hosp., previous admission, EMS record, old EKG, old radiological studies, urgent care reports/EKG's, jail records)? Report findings @ -Reviewed x-rays from previous visit Differential Diagnosis (chest pain, altered mental status, abdominal pain women, abdominal pain men, vaginal bleeding, weakness, fever, dyspnea, syncope, headache, dizziness, GI bleed, back pain, seizure, CVA, palpatations, mental health, musculoskeletal)? @ -[facility] Differential Back Pain: Strain, zoster, cauda equina syndrome, epidural abscess, vertebral osteomyelitis, discitis, fracture, subluxation, disc herniation, DJD, spinal stenosis, dissection, AAA, pancreatitis, peptic ulcer disease, pyelonephritis, kidney stone this is not meant to be an all-inclusive list. EKG interpreted by me (3pts min.). @ -As above X-rays interpreted by me (1pt min.). @ -None done CT interpreted by me (1pt min.). @ -CT shows no acute fracture or subluxation of the lumbosacral spine. Multilevel lumbosacral spine degenerative changes U/S interpreted by me (1pt. min.). @ -None done What testing was considered but not performed or refused? (CT, X-rays, U/S, labs)? Why? @ -None What meds were considered but not given or refused? Why? @ -None Did you discuss the management of the patient with other professionals (professionals i.e. , PA, CAMPAIGN MANAGER, lab, RT, psych nurse, social staff worker, ct scan special procedures technologist, teacher, agricultural technical officer, special education case manager)? Give summary @ -No Was smoking cessation discussed for >3mins.? @ -No Was critical care preformed (if so, how long)? @ -No Were there social determinants of health that impacted care today? How? (Homelessness, low income, unemployed, alcoholism, drug addiction, transportation, low edu. Level, literacy, decrease access to med. care, correction, rehab)? @ -No Was there de-escalation of care discussed even if they declined (Discuss DNR or withdrawal of care, Hospice)? DNR status @ -No What co-morbidities impacted this encounter? (DM, HTN, Smoking, COPD, CAD, Cancer, CVA, ARF, Chemo, Hep., AIDS, mental health diagnosis, sleep apnea, morbid obesity)? @ -None Was patient admitted / discharged? Hospital course, mention meds given and route, prescriptions, significant lab abnormalities, going to OR and other pertinent info. @ -89-year-old female presented with chief complaint of lower back pain. This has been ongoing since a fall on 09 June. She was seen here and had negative x-rays. No red flag symptoms. She is given pain medication. Urine shows no infectious process or bleeding. CT shows no acute abnormality with multiple multilevel degenerative changes with no significant stenosis of the spinal canal. On reassessment patient reports improvement in her pain. She is educated on today's findings. Provided with lidocaine patches and Medrol Dosepak for her pain at home. Follow-up with PCP. Report back to ER with any new or worsening symptoms. Discussed return parameters and answered all questions. Patient conveyed verbal understanding and agreed to the plan. I discussed this case in detail with my attending Dr. Worley Undiagnosed new problem with uncertain prognosis? @ -No Drug Therapy requiring intensive monitoring for toxicity (Heparin, Nitro, Insulin, Cardizem)? @ -No Were any procedures done? @ -No Diagnosis/symptom? @ -Lumbar strain Acute, or Chronic, or Acute on Chronic? @ -Acute Uncomplicated (without systemic symptoms) or Complicated (systemic symptoms)? @ -Uncomplicated Side effects of treatment? @ -No Exacerbation, Progression, or Severe Exacerbation? @ -No Poses a threat to life or bodily function? How? (Chest pain, [place], [place], pneumonia, PE, COPD, DKA, ARF, appy, cholecystitis, CVA, Diverticulitis, Homicidal, Suicidal, threat to staff... and all critical care pts) @ -Low likelihood - Lab Data Lab Results 06/13/24 Range/Units 19:12 Urine Color Colorless Urine Appearance Clear (Clear) Urine pH 6.5 (5.0-8.0) Ur Specific Nova 1.013 (1.001-1.035) Urine Protein Trace H (Negative) Urine Glucose (UA) Negative (Negative) Urine Ketones Negative (Negative) Urine Blood Negative (Negative) Urine Nitrite Negative (Negative) Urine Bilirubin Negative (Negative) Urine Urobilinogen <2.0 (<2.0) mg/dL Ur Leukocyte Esterase Negative (Negative) Disposition Clinical Impression: Strain of lumbar region Disposition: HOME SELF-CARE Condition: Good Instructions (If sedation given, give patient instructions): Acute Low Back Pain (ED) Additional Instructions: Follow-up with PCP. Report back to ER with any new or worsening symptoms. Take medication as prescribed. Prescriptions: Lidocaine 5% Patch [Lidoderm 5% Patch] 1 patch TOPICAL DAILY PRN #30 patch PRN Reason: Pain methylPREDNISolone Dose Pack [Medrol Dose Pack] 4 mg PO DIRECTED #1 packet Is patient prescribed a controlled substance at d/c from ED?: No Referrals: Sb Benedict MD [Primary Care Provider] - 1-2 days Time of Disposition: 20:42
[2024-06-13] MEDS: DEXAMETHASONE SOD PHOSPHATE 10 MG/ML 1 ML VIAL IM STA (18:48)
[2024-06-13] MEDS: HYDROmorphone 1 MG/ML 1 ML SYRINGE IM STA (18:49)
[2024-06-13] MEDS: LIDOCAINE 4% PATCH TOPICAL ONE (18:49)
--- NOTE | 2024-06-13 18:55 | CT ---
EXAMINATION TYPE: CT lumbar spine wo con DATE OF EXAM: 06/13/2024 6:36 PM COMPARISON: X-ray dated 06/09/2024.. CLINICAL INDICATION: Female, 89 years old with history of pain; PHH, back pain TECHNIQUE: Multiple axial images were obtained from the midportion of T11 through the sacroiliac robert nts. Soft tissue and bone windows in coronal and sagittal planes were obtained and reviewed. 3-D ref ormats of the bones were created on a separate workstation and submitted for review. CT DLP: 692.5 mGycm, Automated exposure control for dose reduction was used. FINDINGS: Alignment: There are 5 lumbar type vertebral bodies within normal alignment. Multiple simple appearin g cysts in the left kidney. Bone: No evidence of fracture is identified. Multilevel degeneration changes with osteophyte formati on, disc space narrowing, facet joint arthropathy. Chronic mild to moderate T12 superior endplate co mpression deformity. Osseous structures are demineralized. Grade 1 anterolisthesis of L4 and L5. Discs: T12-L1: Left paracentral/foraminal disc osteophyte complex effaces the ventral thecal sac and likely causes mass effect on descending nerve roots in this region. No high-grade spinal canal or neural for aminal stenosis. L1-L2: Minimal circumferential disc bulging without significant spinal canal or neural foraminal sten osis. L2-L3: Cervical vertebral disc bulging and facet arthropathy mildly narrow the thecal sac without sig nificant spinal canal or neuroforaminal stenosis. L3-L4: Cervical vertebral disc bulging, asymmetric facet arthropathy causes moderate spinal canal cricket nosis and mild to moderate bilateral neural foraminal narrowing. L4-L5: Circumferential disc bulging and uncovering of disc material related to anterolisthesis of L4 on L5 causes moderate spinal canal stenosis and moderate to severe bilateral neural foraminal narrowi ng. L5-S1: No high-grade spinal canal or neural foraminal stenosis. Other: None IMPRESSION: 1. No acute fracture or subluxation of the lumbosacral spine. 2. Multilevel lumbosacral spine degenerative changes as above. [facility], , 06/13/2024 6:52 PM
[2024-06-13 20:06] LABS: Appearance,Urine Clear (Clear); Bilirubin,Urine Negative (Negative); Blood,Urine Negative (Negative); Color,Urine Colorless; Glucose,Urine (UA) Negative (Negative); Ketones,Urine Negative (Negative); Leukocyte Esterase,Urine Negative (Negative); Nitrite,Urine Negative (Negative); PH, Urine 6.5 (5.0-8.0); Protein,Urine Trace (Negative); Specific Gravity,Urine 1.013 (1.001-1.035); Urobilinogen,Urine <2.0 mg/dL (<2.0)
[2024-06-13 20:59] VITALS: BP 200/67; PULSE 65; RESP 16
== END 2024-06-13 20:51 | disposition home or self-care (01) ==
LOC: EC 17:04
DX: S39.012A Strain of muscle, fascia and tendon of lower back, initial encounter (principal); W18.30XA Fall on same level, unspecified, initial encounter
CPT/HCPCS: 81003; 72131; 99284; 96372; J1100; J2270; J1171

== ENCOUNTER 2024-06-18 16:49 | Emergency (ER) | payer MEDICARE, BC ==
[2024-06-18 16:58] VITALS: RESP 18
--- NOTE | 2024-06-18 17:02 | ED ---
General Adult HPI - General Chief complaint: Recheck/Abnormal Lab/Rx Stated complaint: constipation Time Seen by Provider: 06/18/24 17:02 Source: patient, EMS, RN notes reviewed Mode of arrival: EMS Limitations: no limitations - History of Present Illness Initial comments: 89-year-old female presenting to the emergency department via EMS for constipation. States that she has been difficulty having formed bowel movements patient that she has been taking because constipation. Last bowel movement was a few days ago that was extremely hard. Pain. States that she is still passing gas. She took a few stool softeners this morning. Previous surgical history of section. Denies history of bowel obstructions. - Related Data Home Medications Medication Instructions Recorded Confirmed Aspirin EC [Ecotrin] 81 mg PO DAILY 09/29/15 09/30/15 Calcium Carbonate [Calcium] 600 mg PO DAILY 09/29/15 09/30/15 Glucosamine/Chondr Bermudez A Sod [Osteo 1 tab PO DAILY 09/29/15 09/30/15 Bi-Flex Caplet] Levothyroxine Sodium [Synthroid] 100 mcg PO DAILY 09/29/15 09/30/15 Metoprolol Tartrate [Lopressor] 50 mg PO DAILY 09/29/15 09/30/15 hydroCHLOROthiazide 25 mg PO DAILY 09/29/15 09/30/15 lisinopriL [Zestril] 20 mg PO DAILY 09/29/15 09/30/15 ALPRAZolam 0.5 mg PO HS 09/30/15 09/30/15 Previous Rx's Medication Instructions Recorded Sulfacetamide 10% Ophth Soln 2 drops RIGHT EYE Q8H 10 Days #5 ml 07/14/20 [Bleph-10] Acetaminophen-Codeine 300-30mg 1 tab PO Q6HR PRN #18 tablet 06/09/24 [Tylenol #3] Lidocaine 5% Patch [Lidoderm 5% 1 patch TOPICAL DAILY PRN #30 patch 06/13/24 Patch] methylPREDNISolone Dose Pack 4 mg PO DIRECTED #1 packet 06/13/24 [Medrol Dose Pack] Allergies Allergy/AdvReac Type Severity Reaction Status Date / Time No Known Allergies Allergy Verified 06/18/24 16:58 Review of Systems ROS Statement: Those systems with pertinent positive or pertinent negative responses have been documented in the HPI. ROS Other: All systems not noted in ROS Statement are negative. Past Medical History Past Medical History: Hypertension, Thyroid Disorder Additional Past Medical History / Comment(s): DIVERTICULITIS, FIBROMYLAGIA History of Any Multi-Drug Resistant Organisms: None Reported Past Surgical History: Section Additional Past Surgical History / Comment(s): Thyroid surgery, SCOPES BILATERAL KNEES, COCCYX BONE REMOVED Past Anesthesia/Blood Transfusion Reactions: No Reported Reaction Past Psychological History: No Psychological Hx Reported Smoking Status: Never smoker Past Alcohol Use History: None Reported Past Drug Use History: None Reported - Past Family History Sister(s) Family Medical History: Diabetes Mellitus Additional Family Medical History / Comment(s): CABG Mother Family Medical History: Cancer Additional Family Medical History / Comment(s): COLON CA General Exam Limitations: no limitations General appearance: alert, in no apparent distress Neck exam: Present: normal inspection. Absent: tenderness, meningismus, lymphadenopathy Respiratory exam: Present: normal lung sounds bilaterally. Absent: respiratory distress, wheezes, rales, rhonchi, stridor Cardiovascular Exam: Present: regular rate, normal rhythm, normal heart sounds. Absent: systolic murmur, diastolic murmur, rubs, gallop, clicks GI/Abdominal exam: Present: soft, normal bowel sounds. Absent: distended, tenderness, guarding, rebound, rigid Extremities exam: Present: normal inspection, full ROM, normal capillary refill. Absent: tenderness, pedal edema, joint swelling, calf tenderness Back exam: Present: normal inspection Skin exam: Present: warm, dry, intact, normal color. Absent: rash Course Vital Signs 06/18/24 06/18/24 16:51 19:22 Temperature 97.9 F 98 F Pulse Rate 113 H 101 H Respiratory 18 18 Rate Blood Pressure 130/74 125/84 O2 Sat by Pulse 98 98 Oximetry Medical Decision Making - Medical Decision Making Was pt. sent in by a medical professional or institution (, PA, SOLUTION [employer], urgent care, hospital, or long term...) When possible be specific @ -No Did you speak to anyone other than the patient for history (EMS, parent, family, police, friend...)? What history was obtained from this source @ -No Did you review nursing and triage notes (agree or disagree)? Why? @ -I reviewed and agree with nursing and triage notes Were old charts reviewed (outside hosp., previous admission, EMS record, old EKG, old radiological studies, urgent care reports/EKG's, long term records)? Report findings @ -No old charts were reviewed Differential Diagnosis (chest pain, altered mental status, abdominal pain women, abdominal pain men, vaginal bleeding, weakness, fever, dyspnea, syncope, headache, dizziness, GI bleed, back pain, seizure, CVA, palpatations, mental health, musculoskeletal)? @ -Differential Abdominal Pain Women: Appendicitis, Cholecystitis, diverticulosis, ischemic bowel, pancreatitis, hepatitis, UTI, gastroenteritis, AAA, incarcerated hernia, bowel obstruction, constipation, inflammatory bowel, hepatitis, peptic ulcer disease, splenic infarction, perforated viscus, vulvitis, ovarian torsion, PID, kidney stone, placenta abruption, this is not meant to be an all-inclusive list EKG interpreted by me (3pts min.). @ none X-rays interpreted by me (1pt min.). @ -X-ray KUB reveals a nonobstructive bowel gas pattern CT interpreted by me (1pt min.). @ -None done U/S interpreted by me (1pt. min.). @ -None done What testing was considered but not performed or refused? (CT, X-rays, U/S, labs)? Why? @ -None What meds were considered but not given or refused? Why? @ -None Did you discuss the management of the patient with other professionals (professionals i.e. , PA, [employer], lab, RT, psych nurse, social worker assistant, title lawyer, teacher, fire control officer, community case manager)? Give summary @ -No Was smoking cessation discussed for >3mins.? @ -No Was critical care preformed (if so, how long)? @ -No Were there social determinants of health that impacted care today? How? (Homelessness, low income, unemployed, alcoholism, drug addiction, transportation, low edu. Level, literacy, decrease access to med. care, skilled nursing, rehab)? @ -No Was there de-escalation of care discussed even if they declined (Discuss DNR or withdrawal of care, Hospice)? DNR status @ -No What co-morbidities impacted this encounter? (DM, HTN, Smoking, COPD, CAD, Cancer, CVA, ARF, Chemo, Hep., AIDS, mental health diagnosis, sleep apnea, morbid obesity)? @ -None Was patient admitted / discharged? Hospital course, mention meds given and route, prescriptions, significant lab abnormalities, going to OR and other pertinent info. @ -Discharge. 89-year-old female presenting with constipation. Overall is well-appearing. Abdominal examination is unremarkable. She is provided with a Fleet enema that was successful. abdominal x-ray reveals a nonobstructive bowel gas pattern. She is provided with magnesium citrate patient to continue increased fiber, fluids, MiraLAX. Believe that patient's constipation likely secondary to use of Tylenol 3 that she was prescribed after recent fall. Recommend discontinuation of Tylenol 3 and use of Tylenol for pain. discussed with Dr. Benltey Undiagnosed new problem with uncertain prognosis? @ -No Drug Therapy requiring intensive monitoring for toxicity (Heparin, Nitro, Insulin, Cardizem)? @ -No Were any procedures done? @ -No Diagnosis/symptom? @ -constipation Acute, or Chronic, or Acute on Chronic? @ -acute Uncomplicated (without systemic symptoms) or Complicated (systemic symptoms)? @ -uncomplicated Side effects of treatment? @ -No Exacerbation, Progression, or Severe Exacerbation? @ -No Poses a threat to life or bodily function? How? (Chest pain, [place], [place], pneumonia, PE, COPD, DKA, ARF, appy, cholecystitis, CVA, Diverticulitis, Homicidal, Suicidal, threat to staff... and all critical care pts) @ -No Disposition Clinical Impression: Constipation Disposition: HOME SELF-CARE Condition: Good Instructions (If sedation given, give patient instructions): Constipation (DC), High Fiber Diet (ED) Additional Instructions: Please return to the Emergency Department if symptoms worsen or any other concerns. Is patient prescribed a controlled substance at d/c from ED?: No Referrals: Sb Benedict MD [Primary Care Provider] - 1-2 days
--- NOTE | 2024-06-18 17:31 | XR ---
EXAMINATION TYPE: XR KUB DATE OF EXAM: 06/18/2024 5:28 PM COMPARISON: None. CLINICAL INDICATION: Female, 89 years old with history of constipation, TECHNIQUE: Single view of the abdomen. FINDINGS: Small bowel demonstrates no evidence for dilatation or air fluid levels. Gas and fecal material is seen in non-distended colon. No convincing evidence for pneumoperitoneum. No unusual calcifications. The lung bases are clear. The osseous structures are intact. IMPRESSION: 1. Overall nonobstructive bowel gas pattern. [facility], , 06/18/2024 5:29 PM
[2024-06-18] MEDS: NA PHOS,M-B/NA PHOS,DI-BA 133 ML ENEMA RECTAL STA (17:45)
[2024-06-18 19:23] VITALS: BP 125/84; PULSE 101; TEMP 98
[2024-06-18] MEDS: ACETAMINOPHEN TAB 325 MG TAB PO STA (19:26)
[2024-06-18] MEDS: MAGNESIUM CITRATE 296 ML BOTTLE PO ONE (19:29)
== END 2024-06-18 19:35 | disposition home or self-care (01) ==
LOC: EC 16:49
DX: K59.00 Constipation, unspecified (principal)
CPT/HCPCS: 74018; 99283

== ENCOUNTER → 2024-10-29 | Outpatient (CLI) | payer MEDICARE, BC ==
--- NOTE | 2024-10-29 13:32 | US ---
EXAMINATION TYPE: US venous doppler duplex LE RT DATE OF EXAM: 10/29/2024 12:59 PM COMPARISON: NONE CLINICAL INDICATION: Female, 89 years old with history of R swelling RLE R60; right leg swelling, kne e is bone on bone, no h/o dvt TECHNIQUE: The lower extremity deep venous system is examined utilizing real time linear array sonog yan with graded compression, doppler sonography and color-flow sonography. Grayscale, color doppler , spectral doppler imaging performed of the deep veins of the lower extremities FINDINGS: SIDE PERFORMED: Right VESSELS IMAGED: Common Femoral Vein Deep Femoral Vein Greater Saphenous Vein * Femoral Vein Popliteal Vein Small Saphenous Vein * Proximal Calf Veins (* superficial vessels) Right Leg: Negative for DVT; There is normal flow, compressibility, vascular waveforms. IMPRESSION: No evidence for deep vein thrombosis. [facility], , 10/29/2024 1:30 PM
== END | disposition home or self-care (01) ==
LOC: RADUSWWP 12:41
DX: R60.0 Localized edema (principal)